=== PATIENT | male | born 1995 | race Caucasian/White ===

== ENCOUNTER 2018-01-29 08:54 | Emergency (ER) | payer BC ==
[2018-01-29 08:59] VITALS: BP 133/81; PULSE 57; RESP 16; TEMP 97.7
--- NOTE | 2018-01-29 09:08 | ED ---
General Adult HPI - General Chief complaint: Extremity Injury, Upper Stated complaint: Thumb Pain/Soreness Time Seen by Provider: 01/29/18 09:02 Source: patient, RN notes reviewed Mode of arrival: ambulatory Limitations: no limitations - History of Present Illness Initial comments: Patient 22-year-old male presented to the emergency room today with a chief complaint of pain to the base of the left thumb. He does not that he was moving some boxes yesterday. Denies any specific injury or trauma. Patient states that he thought it would feel better this morning but still feels about same. He states worse with flexion and extension at the left thumb. He denies any other injury or complaint. Denies any numbness or tingling. Denies any fever. - Related Data Home Medications Medication Instructions Recorded Confirmed No Known Home Medications 01/29/18 01/29/18 Allergies Allergy/AdvReac Type Severity Reaction Status Date / Time No Known Allergies Allergy Verified 01/29/18 09:07 Review of Systems ROS Statement: Those systems with pertinent positive or pertinent negative responses have been documented in the HPI. ROS Other: All systems not noted in ROS Statement are negative. Past Medical History Past Medical History: No Reported History History of Any Multi-Drug Resistant Organisms: None Reported Additional Past Surgical History / Comment(s): pyloric stenosis sx, ear tubes Past Psychological History: No Psychological Hx Reported Smoking Status: Former smoker Past Alcohol Use History: None Reported Past Drug Use History: None Reported General Exam - General Exam Comments Initial Comments: General: The patient is awake and alert, in no distress, and does not appear acutely ill. Neck: The neck is supple, there is no tenderness or JVD. Musculoskeletal: Normal appearance of the left thumb no obvious deformity. Shows good range of motion both flexion and extension. Mild tenderness over the PIP joint. Sensation intact. Radial pulse 2+. Neurological: A&O x 3. CN II-XII intact, There are no obvious motor or sensory deficits. Coordination appears grossly intact. Speech is normal. Skin: Skin is warm and dry and no rashes or lesions are noted. Psychiatric: Normal mood and affect. Limitations: no limitations Course Vital Signs 01/29/18 08:56 Temperature 97.7 F Pulse Rate 57 L Respiratory 16 Rate Blood Pressure 133/81 O2 Sat by Pulse 100 Oximetry Medical Decision Making - Medical Decision Making Patient's x-ray reviewed and showed no acute abnormality. Results were discussed with the patient. Patient advised to use ice and ibuprofen. Advised follow-up with orthopedics if symptoms persist over the next week. Patient requesting a work note. Advised to return for any other concerns. Disposition Clinical Impression: Thumb sprain Disposition: HOME SELF-CARE Condition: Good Instructions: Finger Sprain (ED) Additional Instructions: Please continue to ice elevate the affected area at least 4 times a day for 20 minutes at a time. Please use ibuprofen for pain. Please return to emergency room for any other concerns. Please follow-up with orthopedic doctor over the next week if symptoms persist. Is patient prescribed a controlled substance at d/c from ED?: No Referrals: Sivakumar Hayden DO [Primary Care Provider] - 1-2 days Cassius Wheatley MD [Medical Doctor] - 1-2 days Time of Disposition: 09:24
--- NOTE | 2018-01-29 09:24 | XR ---
EXAMINATION TYPE: XR hand complete LT DATE OF EXAM: 01/29/2018 CLINICAL HISTORY: First digit pain with no known injury. TECHNIQUE: Frontal, lateral and oblique images of the left wrist are obtained. COMPARISON: None FINDINGS: There is no acute fracture/dislocation evident in the left wrist. The joint spaces in the left wrist appear within normal limits. The overlying soft tissue appears unremarkable. Few subcent imeter calcifications are seen of the volar soft tissues of the wrist with focal soft tissue swelling . IMPRESSION: 1. No acute fracture or dislocation in the left wrist. 2. Volar soft tissue swelling of the wrist with few faint calcifications. This could relate to calcif ic tendinitis or sequela of prior injury.
== END 2018-01-29 09:43 | disposition home or self-care (01) ==
LOC: EC 08:54
DX: S63.602A Unspecified sprain of left thumb, initial encounter (principal); Z87.891 Personal history of nicotine dependence; X50.9XXA Other and unspecified overexertion or strenuous movements or postures, initial encounter; Y92.69 Other specified industrial and construction area as the place of occurrence of the external cause
CPT/HCPCS: 99283

== ENCOUNTER → 2018-06-07 | Outpatient (CLI) | payer BC ==
[2018-06-07 13:19] LABS: Basophils # (A) 0.1 k/uL (0-0.2); Basophils % (A) 1 %; Eosinophils # (A) 0.1 k/uL (0-0.7); Eosinophils % (A) 2 %; HCT 47.8 % (39.0-53.0); HGB 16.4 gm/dL (13.0-17.5); Lymphocytes % (A) 32 %; MCH 31.5 pg (25.0-35.0); MCHC 34.4 g/dL (31.0-37.0); MCV 91.6 fL (80.0-100.0); Mean Platelet Volume 7.1; Monocytes # (A) 0.5 k/uL (0-1.0); Monocytes % (A) 8 %; Neutrophils # (A) 3.4 k/uL (1.3-7.7); Neutrophils % (A) 56 %; Platelet Count 287 k/uL (150-450); RBC 5.22 m/uL (4.30-5.90); RDW 12.7 % (11.5-15.5); WBC 6.2 k/uL (3.8-10.6)
[2018-06-07 19:19] LABS: Albumin/Globulin Ratio 3.13 (1.20-2.10); Anion Gap 6.8 mmol/L (4.00-12.00); Calcium 10.4 mg/dL (8.7-10.3); Carbon Dioxide 32.2 mmol/L (21.6-31.8); Globulin 1.6 g/dL (2.1-3.7); Potassium 3.9 mmol/L (3.5-5.5); Total Bilirubin 0.9 mg/dL (0.2-1.2); Total Protein 6.6 g/dL (6.2-8.2)
== END ==
LOC: LABWHC1 12:35
PROVIDERS: ATTEND Physician Assistant
DX: R10.9 Unspecified abdominal pain (principal)
CPT/HCPCS: 36415; 80053; 85025

== ENCOUNTER → 2018-06-07 | Outpatient (CLI) | payer BC ==
--- NOTE | 2018-06-08 11:15 | XR ---
EXAMINATION TYPE: XR abdomen complete w decub DATE OF EXAM: 06/07/2018 HISTORY: Pain. Technique: 4 views of the abdomen are submitted. Comparison: None. Findings: There is no convincing evidence of pneumoperitoneum. The Bowel gas pattern is nonspecific and nonobstructive. No sizable air-fluid levels are seen. No mass effects are noted. No renal calcifications are identified. IMPRESSION: 1. Nonspecific nonobstructive bowel gas pattern
== END | disposition home or self-care (01) ==
LOC: RADXRMAIN 12:59
PROVIDERS: ATTEND Family Medicine
DX: R10.9 Unspecified abdominal pain (principal)
CPT/HCPCS: 74021

== ENCOUNTER 2020-02-10 06:13 | Emergency (ER) | payer BC, OTHER ==
[2020-02-10 06:18] VITALS: BP 158/107; PULSE 61; RESP 18; TEMP 98.1
[2020-02-10] MEDS ORDERED: ACET/COD 300 MG/30 MG STARTER PACK 6 TAB BTL PO STA (06:23)
--- NOTE | 2020-02-10 06:24 | ED ---
ENT HPI - General Chief complaint: Dental/Oral Stated complaint: Jaw pain Time Seen by Provider: 02/10/20 06:20 Source: patient, RN notes reviewed Mode of arrival: ambulatory Limitations: no limitations - History of Present Illness Initial comments: This is a 24-year-old male presents emergency Department chief complaint of right lower dental pain Started days. Patient states that the pain has been increasing no relief of symptoms. Patient denies any fevers or chills. Patient states the pain is located and right lower aspect along the jawline. He states he has poor dentition, there is a dental fracture. Patient unable to follow-up with the dentist at this time. Patient denies any difficulty swallowing or difficulty breathing. Patient denies any other associated complaints. - Related Data Previous Rx's Medication Instructions Recorded Ibuprofen [Motrin] 600 mg PO Q8HR PRN #30 tab 02/10/20 Penicillin V Potassium [Pen Vee K] 500 mg PO QID #40 tablet 02/10/20 Allergies Allergy/AdvReac Type Severity Reaction Status Date / Time No Known Allergies Allergy Verified 02/10/20 06:18 Review of Systems ROS Statement: Those systems with pertinent positive or pertinent negative responses have been documented in the HPI. ROS Other: All systems not noted in ROS Statement are negative. Past Medical History Past Medical History: No Reported History History of Any Multi-Drug Resistant Organisms: None Reported Additional Past Surgical History / Comment(s): pyloric stenosis sx, ear tubes Past Psychological History: No Psychological Hx Reported Past Alcohol Use History: None Reported Past Drug Use History: None Reported General Exam Limitations: no limitations General appearance: alert, in no apparent distress Head exam: Present: atraumatic, normocephalic, normal inspection Eye exam: Present: normal appearance, PERRL, EOMI. Absent: scleral icterus, conjunctival injection, periorbital swelling ENT exam: Present: mucous membranes moist. Absent: normal oropharynx (Poor dentition, dental fracture right lower there is no drainable abscess there is mild erythema along the gumline. No trismus) Neck exam: Present: normal inspection, full ROM. Absent: tenderness, meningismus, lymphadenopathy Respiratory exam: Present: normal lung sounds bilaterally. Absent: respiratory distress, wheezes, rales, rhonchi, stridor Cardiovascular Exam: Present: regular rate, normal rhythm, normal heart sounds. Absent: systolic murmur, diastolic murmur, rubs, gallop, clicks Neurological exam: Present: alert, oriented X3, CN II-XII intact Skin exam: Present: warm, dry, intact, normal color. Absent: rash Course Vital Signs 02/10/20 06:15 Temperature 98.1 F Pulse Rate 61 Respiratory 18 Rate Blood Pressure 158/107 O2 Sat by Pulse 99 Oximetry Medical Decision Making - Medical Decision Making 24-year-old presented for dental pain patient was started on antibiotics at this time there is no drainable abscess. Patient's blood pressure mildly elevated patient recommend follow-up with PCP did not want any further workup at this time. Disposition Clinical Impression: Fracture of tooth, Dental abscess Disposition: HOME SELF-CARE Condition: Stable Instructions (If sedation given, give patient instructions): Dental Abscess (ED), Toothache (ED) Additional Instructions: Please return to the Emergency Department if symptoms worsen or any other concerns. Prescriptions: Ibuprofen [Motrin] 600 mg PO Q8HR PRN #30 tab PRN Reason: Pain Penicillin V Potassium [Pen Vee K] 500 mg PO QID #40 tablet Is patient prescribed a controlled substance at d/c from ED?: No Referrals: None,Stated [Primary Care Provider] - 1-2 days Time of Disposition: 06:23
== END 2020-02-10 06:35 | disposition home or self-care (01) ==
LOC: EC 06:13
DX: S02.5XXA Fracture of tooth (traumatic), initial encounter for closed fracture (principal); K04.7 Periapical abscess without sinus; I10 Essential (primary) hypertension; X58.XXXA Exposure to other specified factors, initial encounter
CPT/HCPCS: 99283